=== PATIENT | male | born 1970 | race Caucasian/White ===

== ENCOUNTER 2019-02-09 19:25 | Emergency (ER) | payer SELFPAY ==
[~2019-02-09] VITALS: Ht 172.7 cm; Wt 69.0 kg
[2019-02-09 19:36] VITALS: Ht 172.7 cm; Wt 69.0 kg
[2019-02-09] MEDS ORDERED: SODIUM CHLORIDE 0.9% 1L IRRIG IRR STA (21:02)
[2019-02-09] MEDS ORDERED: LIDOCAINE 2%/EPI MPF (SDV) 20 ML VIAL INJ STA (21:02)
[2019-02-09] MEDS ORDERED: LIDOCAINE 4% CR TOP STA (21:02)
[2019-02-09] MEDS ORDERED: DIPHTH/TET/ACEL PERTUSS (ADULT) 0.5 ML VIAL IM* ONE (21:30)
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
[2019-02-09] MEDS ORDERED: BACITUD TOP (21:58)
[2019-02-09] MEDS ORDERED: HYDR-4011 PO (21:59)
[2019-02-09] MEDS ORDERED: OXYCODONE/ACETAMINOPHEN (5/325) TAB PO ONE (22:00)
[2019-02-09] MEDS ORDERED: BACITRACIN 0.9 GM OINT ONE (23:13)
[2019-02-09 23:20] VITALS: BP 108/71; PULSE 66; RESP 16
== END 2019-02-09 23:24 | disposition home or self-care (01) ==
LOC: FTE 19:25
DX: S01.91XA Laceration without foreign body of unspecified part of head, initial encounter (principal); X99.0XXA Assault by sharp glass, initial encounter; Z23 Encounter for immunization
CPT/HCPCS: 70260; 90471; 90715

== ENCOUNTER 2019-02-15 15:14 | Emergency (ER) | payer SELFPAY ==
[~2019-02-15] VITALS: Wt 72.0 kg
[~2019-02-15 15:14] MED LIST: BACITUD TOP; HYDR-4011 PO
[2019-02-15 15:22] VITALS: BP 108/59; PULSE 79; RESP 18
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
== END 2019-02-15 18:13 | disposition home or self-care (01) ==
LOC: FTE 15:14
DX: S09.90XD Unspecified injury of head, subsequent encounter (principal); R51 Headache; W22.8XXD Striking against or struck by other objects, subsequent encounter; Z48.02 Encounter for removal of sutures
CPT/HCPCS: 70450